=== PATIENT | male | born 1935 | race Caucasian/White ===

== ENCOUNTER 2016-05-05 12:17 | Emergency (ER) | payer MEDICARE, MEDICAID ==
--- NOTE | 2016-05-05 12:29 | ER Document Report ---
ED Medical Screen (RME) - General Stated Complaint: WEAKNESS Mode of Arrival: Wheelchair Information source: Patient Notes: c/o generalized weakness, body aches, joint pain (knees/elbows), sweats, cough and decreased appetite for the past 2-3 days Family member states when he got there today, noticed patient was pale and had soaked through his shirt. denies headache, dizziness, chest pain, SOB, n/v/d or urinary symptoms PMHX no HTN, +DM, non-smoker I have greeted and performed a rapid initial assessment of this patient. A comprehensive ED assessment and evaluation of the patient, analysis of test results and completion of the medical decision making process will be conducted by additional ED providers. TRAVEL OUTSIDE OF THE [place] IN LAST 30 DAYS: No - Related Data Allergies/Adverse Reactions: No Known Allergies Allergy (Unverified 04/12/13 14:05) Past Medical History - Past Medical History Cardiac Medical History: Reports: Hx Hypertension - medicated/CONTROLLED Denies: Hx Heart Attack Pulmonary Medical History: Denies: Hx Asthma Neurological Medical History: Reports: Hx Cerebrovascular Accident - no residual 7-8yrs ago. Denies: Hx Seizures GI Medical History: Denies: Hx Hepatitis, Hx Hiatal Hernia, Hx Ulcer Musculoskeltal Medical History: Reports Hx Gout Psychiatric Medical History: Denies: Hx Depression Infectious Medical History: Denies: Hx Hepatitis Past Surgical History: Denies: Hx Open Heart Surgery, Hx Pacemaker Physical Exam - Vital signs Vitals: Temp Pulse Resp BP Pulse Ox 99.3 F 96 20 134/81 H 97 05/05/16 12:23 05/05/16 12:23 05/05/16 12:23 05/05/16 12:23 05/05/16 12:23 Course - Vital Signs Vital signs: Temp Pulse Resp BP Pulse Ox 99.3 F 96 20 134/81 H 97 05/05/16 12:23 05/05/16 12:23 05/05/16 12:23 05/05/16 12:23 05/05/16 12:23
[2016-05-05 13:10] LABS: ABSOLUTE BASOPHILS # (AUTO) 0.1 10^3/uL (0.0-0.2); ABSOLUTE LYMPHOCYTES (AUTO) 1.3 10^3/uL (0.5-4.7); ABSOLUTE MONOCYTES (AUTO) 0.8 10^3/uL (0.1-1.4); ABSOLUTE NEUT (AUTO) 5.7 10^3/uL (1.7-8.2); BASOPHILS % (AUTO) 0.9 % (0-2); EOSINOPHILS % (AUTO) 0.5 % (0-6); HEMATOCRIT 40.6 % (37.9-51.0); HEMOGLOBIN 13.5 g/dL (13.5-17.0); HGB HCT DIFFERENCE -0.1; LYMPHOCYTES % (AUTO) 16.9 % (13-45); MEAN CORPUSCULAR HEMOGLOBIN 29.8 pg (27.0-33.4); MEAN CORPUSCULAR HGB CONC 33.1 g/dL (32.0-36.0); MEAN CORPUSCULAR VOLUME 90 fl (80-97); MONOCYTES % (AUTO) 10.6 % (3-13); RED BLOOD COUNT 4.52 10^6/uL (4.35-5.55); SEGMENTED NEUTROPHILS % (AUTO) 71.1 % (42-78)
[2016-05-05] MEDS ORDERED: DOXYCYCLINE HYCLATE INJ 100 MG VIAL IV ONE (13:50)
[2016-05-05] MEDS ORDERED: NORMAL SALINE 1000 ML 1,000 ML IV ONE (13:52)
[2016-05-05 14:29] LABS: APPEARANCE,URINE SLIGHTLY-CLOUDY; BILIRUBIN,URINE NEGATIVE (NEGATIVE); GLUCOSE, URINE NEGATIVE (NEGATIVE); KETONES,URINE NEGATIVE (NEGATIVE); LEUKOCYTE ESTERASE,URINE NEGATIVE (NEGATIVE); NITRITE,URINE NEGATIVE (NEGATIVE); PROTEIN,URINE 30 mg/dL (NEGATIVE); URINE SPECIFIC GRAVITY 1.016; UROBILINOGEN,URINE NEGATIVE mg/dL (<2.0)
[2016-05-05 15:42] LABS: ALANINE AMINOTRANSFERASE 25 U/L (21-72); ALBUMIN 3.6 g/dL (3.5-5.0); ALKALINE PHOSPHATASE 67 U/L (38-126); ANION GAP 13 (5-19); ASPARTATE AMINO TRANSFERASE 26 U/L (17-59); BILIRUBIN,TOTAL 1.5 mg/dL (0.2-1.3); BLOOD UREA NITROGEN 20 mg/dL (7-20); CALCIUM 8.5 mg/dL (8.4-10.2); CARBON DIOXIDE 27 mmol/L (22-30); CHLORIDE 94 mmol/L (98-107); CREATINE KINASE 224 U/L (55-170); GLUCOSE 96 mg/dL (75-110); LIPASE 56.4 U/L (23-300); POTASSIUM 3.7 mmol/L (3.6-5.0); SODIUM 134.1 mmol/L (137-145); TOTAL PROTEIN 7.1 g/dL (6.3-8.2)
[2016-05-05 15:54] LABS: CREATINE KINASE MB 0.9 ng/mL (<4.55)
[2016-05-05 16:01] LABS: TROPONIN I 0.059 ng/mL
--- NOTE | 2016-05-05 16:56 | ER Document Report ---
ED General - General Chief Complaint: Weakness Stated Complaint: WEAKNESS Mode of Arrival: Wheelchair TRAVEL OUTSIDE OF THE [place] IN LAST 30 DAYS: No - HPI Patient complains to provider of: generalized weakness fevers Notes: Patient coming in for evaluation of generalized weakness and fevers. Family at bedside states they're in town And initially planning on moving the patient in with them. Patient states having night sweats minimal trouble breathing generalized weakness patient does have a left olecranon bursa that is mildly erythematous also complains of an area of erythema on the right bartlett. States these have been there for approximately a few days". Otherwise patient does not give much more information pertaining to the history of present illness. Denies trauma denies nausea vomiting diarrhea denies any recent antibiotics - Related Data Allergies/Adverse Reactions: No Known Allergies Allergy (Verified 05/05/16 12:26) Past Medical History - General Information source: Patient - Social History Smoking Status: Never Smoker Chew tobacco use (# tins/day): No Frequency of alcohol use: None Drug Abuse: None Family History: Reviewed & Not Pertinent, CAD, CVA Patient has suicidal ideation: No Patient has homicidal ideation: No - Past Medical History Cardiac Medical History: Reports: Hx Hypertension - medicated/CONTROLLED Denies: Hx Heart Attack Pulmonary Medical History: Denies: Hx Asthma Neurological Medical History: Reports: Hx Cerebrovascular Accident - no residual 7-8yrs ago. Denies: Hx Seizures Renal/ Medical History: Denies: Hx Peritoneal Dialysis GI Medical History: Denies: Hx Hepatitis, Hx Hiatal Hernia, Hx Ulcer Musculoskeltal Medical History: Reports Hx Gout Psychiatric Medical History: Denies: Hx Depression Infectious Medical History: Denies: Hx Hepatitis Past Surgical History: Denies: Hx Open Heart Surgery, Hx Pacemaker - Immunizations Hx Pneumococcal Vaccination: 12/04/13 Review of Systems - Review of Systems Constitutional: Weakness EENT: No symptoms reported Cardiovascular: No symptoms reported Respiratory: No symptoms reported Gastrointestinal: No symptoms reported Genitourinary: No symptoms reported Male Genitourinary: No symptoms reported Musculoskeletal: No symptoms reported Skin: No symptoms reported Hematologic/Lymphatic: No symptoms reported Neurological/Psychological: No symptoms reported -: Yes All other systems reviewed and negative Physical Exam - Vital signs Vitals: Temp Pulse Resp BP Pulse Ox 99.3 F 96 20 134/81 H 97 05/05/16 12:23 05/05/16 12:23 05/05/16 12:23 05/05/16 12:23 05/05/16 12:23 Interpretation: Normal - General General appearance: Appears well, Alert - HEENT Head: Normocephalic, Atraumatic Eyes: Normal Pupils: PERRL - Respiratory Respiratory status: No respiratory distress Chest status: Nontender Breath sounds: Rhonchi - Right lower lobe Chest palpation: Normal - Cardiovascular Rhythm: Regular Heart sounds: Normal auscultation Murmur: No - Abdominal Inspection: Normal Distension: No distension Bowel sounds: Normal Tenderness: Nontender Organomegaly: No organomegaly - Back Back: Normal, Nontender - Extremities General upper extremity: Nontender, Normal color, Normal ROM, Normal temperature. No: Normal inspection - Patient with a outlook on bursa with mild erythema of the bursa patient has full range of motion of the elbow no pain on the left otherwise normal upper extremity examination General lower extremity: Nontender, Normal color, Normal ROM, Normal temperature , Normal weight bearing. No: Normal inspection - Small area of skin erythema underneath the knee on the right side warm to touch patient has full range motion of the right knee, Zoe's sign - Neurological Neuro grossly intact: Yes Cognition: Normal Orientation: AAOx4 Mirna Coma Scale Eye Opening: Spontaneous Paradox Coma Scale Verbal: Oriented Paradox Coma Scale Motor: Obeys Commands Mirna Coma Scale Total: 15 Speech: Normal Motor strength normal: LUE, RUE, LLE, RLE Sensory: Normal - Psychological Associated symptoms: Normal affect, Normal mood - Skin Skin Temperature: Warm Skin Moisture: Dry Skin Color: Normal Course - Re-evaluation Re-evalutation: 05/05/16 18:50 Patient with possible cellulitis chest x-ray showing pneumonia. Patient was started on doxycycline. Laboratory data showed a slight elevation in white count medicine signs of dehydration. Patient was given fluids here patient was able to ambulate around the ER without difficulty. Upon reevaluation patient requesting be discharged home. Encouraged to take antibiotics as prescribed. Encouraged follow-up primary care physician. Patient is also encouraged to return to the ER symptoms worsen. Patient states understanding patient was discharged home the care of his family. - Vital Signs Vital signs: Temp Pulse Resp BP Pulse Ox 97.6 F 96 24 H 124/83 96 05/05/16 16:55 05/05/16 16:55 05/05/16 16:55 05/05/16 16:55 05/05/16 16:55 - Laboratory Result Diagrams: 05/05/16 13:00 05/05/16 15:05 Laboratory results interpreted by me: 05/05/16 05/05/16 05/05/16 14:03 14:03 15:05 Sodium 134.1 L Chloride 94 L Est GFR (Non-Af Amer) 58 L Lactic Acid 2.2 H Total Bilirubin 1.5 H Creatine Kinase 224 H Urine Protein 30 H Urine Blood MODERATE H Discharge - Discharge Clinical Impression: Pneumonia Qualifiers: Pneumonia type: due to unspecified organism Laterality: right Lung location: lower lobe of lung Qualified Code(s): J18.1 - Lobar pneumonia, unspecified organism Cellulitis Qualifiers: Site of cellulitis: unspecified site Qualified Code(s): L03.90 - Cellulitis, unspecified Condition: Good Disposition: HOME, SELF-CARE Instructions: Cellulitis ([facility]), Pneumonia ([facility]) Additional Instructions: Your evaluation today shows signs of pneumonia and cellulitis. We will place you on antibiotic, doxycycline that will treat both cellulitis and pneumonia. These make sure that she stay well-hydrated as there are signs of dehydration on your laboratory results today. Follow-up with your primary care physician in 2-3 days. Return to the ER symptoms worsen. Prescriptions: Doxycycline Hyclate 100 mg PO BID #20 capsule Referrals: KARI DURAN MD [Primary Care Provider] - Follow up in 3-5 days
[2016-05-05 17:19] VITALS: BP 124/83
--- NOTE | 2016-05-06 09:17 | EKG REPORT ---
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
== END 2016-05-05 16:55 | disposition home or self-care (01) ==
LOC: ER 12:17
DX: J18.1 Lobar pneumonia, unspecified organism (principal); L03.90 Cellulitis, unspecified; D72.829 Elevated white blood cell count, unspecified; R53.1 Weakness; R50.9 Fever, unspecified; R61 Generalized hyperhidrosis; I10 Essential (primary) hypertension; Z86.73 Personal history of transient ischemic attack (TIA), and cerebral infarction without residual deficits
CPT/HCPCS: 93005; 99285; 36415; 87040; 82553; 82962; 82550; 83690; 85025; 80053; 81001; 84484; 83605; 87804; 71020; 93010; J3490; J7030; 96365